=== PATIENT | female | born 1995 | race Caucasian/White ===

== ENCOUNTER 2018-07-16 23:05 | Inpatient (IN) | payer MEDICAID ==
[~2018-07-16] VITALS: Ht 162.6 cm; Wt 72.1 kg
[2018-07-17] VITALS (10 sets, daily range): BP systolic 104–118; BP diastolic 55–68; PULSE 56–104; RESP 18; Ht 162.6 cm; Wt 72.1 kg
[2018-07-17] MEDS ORDERED: BUTORPHANOL 2 MG INJ IV PRN (01:00)
[2018-07-17] MEDS ORDERED: LIDOCAINE 1% (MPF) 30 ML INJ INJ PRN (01:00)
[2018-07-17] MEDS ORDERED: METHYLERGONOVINE 0.2 MG INJ IM PRN (01:00)
[2018-07-17] MEDS ORDERED: OXYTOCIN 30 UNITS/LR 500 ML IV SCH ×3 (01:00→11:30)
[2018-07-17] MEDS ORDERED: CARBOPROST 250 MCG INJ IM PRN ×2 (01:00→14:30)
[2018-07-17] MEDS ORDERED: OXYTOCIN 30 UNITS/LR 500 ML IV PRN ×2 (01:00→14:30)
[2018-07-17] MEDS: LACTATED RINGER'S 1,000 ML IV SCH ×3 (04:00→16:35)
--- NOTE | 2018-07-17 09:17 | TRIAGE ---
OB Triage Datetime Report Generated by CPN: 07/17/2018 09:17 Datetime: 07/17/2018 08:16 Vaginal Exam Dilatation (cms): 3.0 Effacement (%): 50 Station: -3 Exam By: lh Datetime: 07/17/2018 08:03 Assessment Type: Ongoing Assessment Maternal Assessment Level of Consciousness: Fully Conscious DTR's/Clonus: DTRs 2+; No Clonus Headache: Denies Blurred Vision: No Respiratory Effort: Unlabored; Regular Rhythm; Equal Expansion Breath Sounds, Left: Clear and Equal Breath Sounds, Right: Clear and Equal Nausea/Vomiting: Denies RUQ Epigastric Pain: Denies Lower Extremities Edema: None Upper Extremities Edema: None Facial Edema: None Fall Risk Assessment History of Falling: (0) No Secondary Diagnosis: (0) No Ambulatory Aid: (0) Bedrest/Nurse Assist Gait: (0) Normal/Bedrest/Immobile Mental Status: (0) Oriented to Own Ability Datetime: 07/17/2018 07:59 Maternal Assessment Level of Consciousness: Fully Conscious Headache: Denies Blurred Vision: No Nausea/Vomiting: Denies RUQ Epigastric Pain: Denies Facial Edema: None Labor Evaluation Frequency: 2-8 Monitor Mode: External Duration (sec)2399: 30-80 Quality: Mild Pattern: Normal: <= 5 Contractions in 10 Minutes Resting Tone [place]: Relaxed Heart Rate FHR Baseline Rate: 130 Monitor Mode: External US FHR Baseline Changes: No Baseline Change Variability: Moderate 6-25 bpm Accelerations: 15X15 Decelerations: None Category: Category I Pain Assessment Pain Scale: 3 Pain Presence: None/Denies Pain Type: Cramping Pain Location: Abdomen; Back Pain Goal: 5 Pain Relief Measures: Comfort Measures Membrane Status: Intact Datetime: 07/17/2018 07:43 Stage of : Labor Temperature Route: Oral Pain Assessment Pain Scale: 3 Pain Presence: Intermittent Pain Type: Burning; Cramping Pain Goal: 5 Datetime: 07/17/2018 05:39 Stage of : Labor Maternal Assessment Level of Consciousness: Fully Conscious Respiratory Effort: Unlabored Breath Sounds, Left: Clear and Equal Breath Sounds, Right: Clear and Equal Labor Evaluation Frequency: 4 Monitor Mode: External Duration (sec)2399: 50-55 Quality: Mild Pattern: Normal: <= 5 Contractions in 10 Minutes Resting Tone [place]: Relaxed Heart Rate FHR Baseline Rate: 125 Monitor Mode: External US FHR Baseline Changes: No Baseline Change Variability: Moderate 6-25 bpm Accelerations: 15X15 Decelerations: None Category: Category I Pain Assessment Pain Scale: 4 Pain Presence: Intermittent Pain Type: Dull; Ache Pain Location: Abdomen; Back Pain Relief Measures: Comfort Measures Membrane Status: Intact Datetime: 07/17/2018 04:40 Stage of : Labor Labor Evaluation Frequency: 3-5 Monitor Mode: External Duration (sec)2399: 40-50 Quality: Mild Pattern: Normal: <= 5 Contractions in 10 Minutes Resting Tone [place]: Relaxed Heart Rate FHR Baseline Rate: 125 Monitor Mode: External US FHR Baseline Changes: No Baseline Change Variability: Moderate 6-25 bpm Accelerations: 15X15 Decelerations: None Category: Category I Pain Assessment Pain Scale: 3 Pain Presence: Intermittent Pain Type: Dull; Ache Datetime: 07/17/2018 03:59 Stage of : Labor Maternal Assessment Level of Consciousness: Fully Conscious DTR's/Clonus: DTRs 2+ Headache: Denies Blurred Vision: No Respiratory Effort: Unlabored Breath Sounds, Left: Clear and Equal Breath Sounds, Right: Clear and Equal Nausea/Vomiting: Denies RUQ Epigastric Pain: Denies Labor Evaluation Frequency: 3-5 Monitor Mode: External Duration (sec)2399: 60-65 Quality: Mild Pattern: Normal: <= 5 Contractions in 10 Minutes Resting Tone [place]: Relaxed Heart Rate FHR Baseline Rate: 120 Monitor Mode: External US FHR Baseline Changes: No Baseline Change Variability: Moderate 6-25 bpm Accelerations: 15X15 Decelerations: None Category: Category I Pain Assessment Pain Scale: 4 Pain Presence: Intermittent Pain Type: Cramping; Dull; Contraction Pain Location: Abdomen; Back Pain Goal: 2 Pain Relief Measures: Comfort Measures Pain Assessment Comments: AT BEDSIDE Membrane Status: Intact Datetime: 07/17/2018 03:28 Stage of : Labor Maternal Assessment Level of Consciousness: Fully Conscious DTR's/Clonus: DTRs 2+ Headache: Denies Blurred Vision: No Respiratory Effort: Unlabored Breath Sounds, Left: Clear and Equal Breath Sounds, Right: Clear and Equal Nausea/Vomiting: Denies RUQ Epigastric Pain: Denies Labor Evaluation Frequency: 4 Monitor Mode: External Duration (sec)2399: 40-50 Quality: Mild Pattern: Normal: <= 5 Contractions in 10 Minutes Resting Tone [place]: Relaxed Interventions: Side to Side Heart Rate FHR Baseline Rate: 120 Monitor Mode: External US FHR Baseline Changes: No Baseline Change Variability: Moderate 6-25 bpm Accelerations: 10X10 Decelerations: None Category: Category I Pain Assessment Pain Scale: 4 Pain Presence: Intermittent Pain Type: Cramping; Dull; Contraction; Ache Pain Location: Abdomen Pain Goal: 2 Pain Relief Measures: Comfort Measures Membrane Status: Intact Datetime: 07/17/2018 01:05 Stage of : OB Triage Labor Evaluation Frequency: 3-6 Monitor Mode: External Duration (sec)2399: 70-140 Quality: Mild Pattern: Normal: <= 5 Contractions in 10 Minutes Resting Tone [place]: Relaxed Heart Rate FHR Baseline Rate: 120 Monitor Mode: External US Variability: Moderate 6-25 bpm Accelerations: 15X15 Decelerations: None Category: Category I Pain Assessment Pain Scale: 3 Pain Presence: Intermittent Pain Type: Cramping Pain Location: Abdomen Pain Goal: 3 Pain Relief Measures: Comfort Measures Datetime: 07/17/2018 00:30 Stage of : OB Triage Temperature Route: Oral Labor Evaluation Frequency: 1-4 Monitor Mode: External Duration (sec)2399: 50-150 Quality: Mild Pattern: Normal: <= 5 Contractions in 10 Minutes Resting Tone [place]: Relaxed Heart Rate FHR Baseline Rate: 120 Monitor Mode: External US Variability: Moderate 6-25 bpm Accelerations: 15X15 Decelerations: None Category: Category I Pain Assessment Pain Scale: 3 Pain Presence: Intermittent Pain Type: Cramping Pain Location: Abdomen Pain Goal: 3 Pain Relief Measures: Comfort Measures Datetime: 07/16/2018 23:58 Assessment Type: Triage Maternal Assessment Level of Consciousness: Fully Conscious DTR's/Clonus: DTRs 2+; No Clonus Headache: Denies Blurred Vision: No Respiratory Effort: Unlabored; Regular Rhythm; Equal Expansion Breath Sounds, Left: Clear and Equal Breath Sounds, Right: Clear and Equal Nausea/Vomiting: Denies RUQ Epigastric Pain: Denies Lower Extremities Edema: None Upper Extremities Edema: None Facial Edema: None Fall Risk Assessment History of Falling: (0) No Secondary Diagnosis: (0) No Ambulatory Aid: (0) Bedrest/Nurse Assist IV Therapy: (0) No Gait: (0) Normal/Bedrest/Immobile Mental Status: (0) Oriented to Own Ability Fall Score: 0 Fall Risk Score Definition: No Risk: No action required Datetime: 07/16/2018 23:57 Time of Arrival: 07/16/2018 23:00 EGA: 39.4 Arrived By: Wheelchair Arrived From: Home Chief Complaint: CONTRACTIONS FOR 3 DAYS, NOW Q 5 MIN Movement: Present Contractions: Regular Contractions: Q 5 Rupture of Membranes: Denies Vaginal Discharge: Denies Time Provider Notified: 07/17/2018 00:29 Provider Notified: OSMIN Initial Plan: EFM, ASSESSMENT, CALL MD FOR ORDERS Vaginal Exam Dilatation (cms): 3.0 Effacement (%): 60 Station: -2 Exam By: MIKE Vaginal Bleeding: None Cervix, Consistency: Moderate Cervix, Position: Posterior
--- NOTE | 2018-07-17 11:04 | HP ---
Date/Time of Note Date/Time of Note DATE: 07/17/18 TIME: 11:01 OB - History Hx of Present Free Text/Dictation 23 YO with IUP at 39.5 weeks with EDC 07/19/2018 who reported to L&D with contractions. AROM done and she has clear fluid. adequate pelvic, EFW 7.5 LB Care: Good Care Ultrasounds: Normal mid trimester US Obstetrical Complications: None Medical Complications: None Past Family/Social History * Past Medical, Surgical, Family and Obstetric Histories reviewed from chart. OB Admission Exam Vital Signs Vital Signs Vital Signs Date Temp Pulse Resp B/P (MAP) Pulse Ox O2 O2 Flow FiO2 Time Delivery Rate 07/17/18 98.4 71 18 118/65 Room Air 00:34 (82) Physical Exam HEENT: WNL Heart: Rhythm Normal Lungs: Clear, Equal Abdomen: WNL Extremities: Normal Reflexes: Normal Cervical Dilatation: 3cm Last 72 hours Lab Results CBC & BMP 07/17/18 03:17 OB Assessment/Plan Reason for admission: other (Early Labor) Induction Method: per Pitocin Protocol PEG CAMERON MD Jul 17, 2018 11:04
[2018-07-17] MEDS: MISOPROSTOL 200 MCG TAB PR PRN ×2 (13:46→13:49)
[2018-07-17] MEDS: LACTATED RINGER'S 1,000 ML IV* SCH ×2 (14:22→23:51)
--- NOTE | 2018-07-17 14:27 | LDN ---
Date/Time of Note Date/Time of Note DATE: 07/17/18 TIME: 14:24 Delivery Summary s/p of viabl male infant. she had deep laceration in very close proximity of the urethra. I placed álvarez cath and then used 2-0 Chromic on SH and repaired the laceration. she also had 2nd perineal laceration which was repaired with 3-0 Vicryl. she had PPH with EBL 600 ml. Pitocin, Methergine and Cytotec given. PPH resolved. placenta delivered intact and spontaneously Placenta Delivered: Spontaneously Meconium: none Episiotomy: No Perineal laceration: 2 Anesthesia type: Local Estimated blood loss: 600 Sponge & Needle done & correct: Yes All needle counts correct: Yes Any foreign bodies felt in the: No Delivery Information Sex Sex: male Apgars 1 Minute: 8 5 Minute: 9 Suctioning Nose & mouth suctioned at vladislav: No Delee suction performed: No Umbilical Cord Umbilical cord with: 3 Vessels Cord presentations: no nuchal cord Cord Blood was obtained: Yes Mother & Baby Disposition Disposition Mom & Baby to Maternity; Good: Yes PEG CAMERON MD Jul 17, 2018 14:27
[2018-07-17] MEDS ORDERED: SENNA/DOCUSATE NA (8.6MG/50MG) TAB PO PRN (14:30)
[2018-07-17] MEDS ORDERED: DIPHENHYDRAMINE 25 MG CAP PO PRN (14:30)
[2018-07-17] MEDS ORDERED: WITCH HAZEL/GLYCERIN PAD PR PRN (14:30)
[2018-07-17] MEDS ORDERED: HYDROCODONE/APAP (5/325) TAB PO PRN ×2 (14:30)
[2018-07-17] MEDS ORDERED: ONDANSETRON 4 MG TAB PO PRN (14:30)
[2018-07-17] MEDS ORDERED: DIPHENHYDRAMINE 50 MG INJ IV PRN (14:30)
[2018-07-17] MEDS ORDERED: NA PHOSPHATE/BIPHOS 133 ML ENEMA PR PRN (14:30)
[2018-07-17] MEDS ORDERED: LANOLIN HPA 1 PKT TOP PRN (14:30)
[2018-07-17] MEDS ORDERED: DIBUCAINE 1% 30 GM OINT TOP PRN (14:30)
[2018-07-17] MEDS ORDERED: MISOPROSTOL 200 MCG TAB PR PRN (14:30)
[2018-07-17] MEDS ORDERED: ONDANSETRON 4 MG INJ IV PRN (14:30)
[2018-07-17] MEDS ORDERED: BENZOCAINE 20% 56 ML SPRAY TOP PRN (14:30)
[2018-07-17] MEDS ORDERED: MAGNESIUM HYDROXIDE 30ML CUP PO PRN (14:30)
[2018-07-17] MEDS ORDERED: CEFAZOLIN 2 GM/50 ML (PMX) 50 ML IVPB ONE (15:30)
[2018-07-17] MEDS: IBUPROFEN 600 MG TAB PO SCH ×2 (18:19→23:51)
[2018-07-17] MEDS: PIPER-TAZO 3.375 GM IV (PMX) 100 ML IVPB SCH (20:25)
[2018-07-17] MEDS: SENNA/DOCUSATE NA (8.6MG/50MG) TAB PO SCH (20:26)
[2018-07-18] VITALS: BP 106/56; PULSE 71
[2018-07-18] MEDS: LACTATED RINGER'S 1,000 ML IV SCH ×3 (01:19→16:35)
[2018-07-18] MEDS: PIPER-TAZO 3.375 GM IV (PMX) 100 ML IVPB SCH ×4 (02:18→20:19)
[2018-07-18 04:03] VITALS: BP 100/60; PULSE 70; RESP 18
[2018-07-18] MEDS: LACTATED RINGER'S 1,000 ML IV* SCH ×3 (06:22→22:22)
[2018-07-18] MEDS: IBUPROFEN 600 MG TAB PO SCH ×3 (06:23→17:54)
[2018-07-18 09:30] VITALS: BP 102/60; PULSE 86; RESP 18
--- NOTE | 2018-07-18 09:49 | DS ---
Date/Time of Note Date/Time of Note DATE: 07/18/18 TIME: 09:49 Obstetrical Discharge Record Final Diagnosis Final Diagnosis: Term delivered Vaginal Delivery Obstetrical Delivery: Spontaneous Complications Augmentation: Yes Induction: No Rupture of Membranes: No Condition on Discharge Physical Assessment Voiding: Yes Bowel Movement: Yes Breast: Soft, non-tender, Filling Fundus: Firm Abdomen and Incision: soft, not tender Calf Tenderness: No Patient Condition: Good PEG CAMERON MD Jul 18, 2018 09:49
[2018-07-18] MEDS: SENNA/DOCUSATE NA (8.6MG/50MG) TAB PO SCH ×2 (12:11→20:19)
[2018-07-18 16:00] VITALS: BP 116/63; PULSE 80; RESP 18
[2018-07-18 20:00] VITALS: BP 111/57; PULSE 88; RESP 18
[2018-07-19] MEDS: IBUPROFEN 600 MG TAB PO SCH ×3 (00:27→11:14)
[2018-07-19] MEDS: LACTATED RINGER'S 1,000 ML IV SCH (00:35)
[2018-07-19] MEDS: PIPER-TAZO 3.375 GM IV (PMX) 100 ML IVPB SCH ×2 (02:34→08:25)
[2018-07-19 04:04] VITALS: BP 105/60; PULSE 82
[2018-07-19] MEDS: LACTATED RINGER'S 1,000 ML IV* SCH (06:22)
[2018-07-19 08:15] VITALS: BP 103/59; PULSE 81; RESP 20
[2018-07-19] MEDS ORDERED: DIPHTH/TET/ACEL PERTUSS (ADULT) 0.5 ML VIAL IM* ONE (09:00)
[2018-07-19] MEDS ORDERED: MEASLES,MUMPS,RUBELLA VACCINE INJ SC* ONE (09:00)
[2018-07-19] MEDS ORDERED: VARICELLA VACCINE LIVE/PF 1,350 UNIT/0.5 ML ML SC* ONE (09:00)
[2018-07-19] MEDS: SENNA/DOCUSATE NA (8.6MG/50MG) TAB PO SCH (10:03)
--- NOTE | 2018-07-22 11:27 | DELSUM ---
Delivery Summary A-C Datetime Report Generated by CPN: 07/22/2018 11:20 DELIVERY PERSONNEL Imagery Analyst: Me Chavezena MATERNAL INFORMATION Delivery Anesthesia: None Medications in Delivery: PITOCIN 30 UNITS IN 500 ML L/R INJ IV BOLUS RATE Delivery QBL (ml): 600 Placenta Cultured: No Maternal Complications: None LABOR SUMMARY EDC: 07/19/2018 00:00 No. Babies in Womb: 1 Attempted: No Labor Anesthesia: None LABOR INFORMATION Reason for Induction: Not Applicable Onset of Labor: 07/16/2018 16:00 Complete Dilatation: 07/17/2018 13:28 Oxytocin: Augmentation Group B Beta Strep: Negative Antibiotics # of Doses: 0 Steroids Given: None Reason Steroids Not Administered: Not Applicable MEMBRANES Membranes Rupture Method: Artificial Rupture of Membranes: 07/10/2018 10:50 Length of Rupture (hr): 170.78 Amniotic Fluid Color: Clear Amniotic Fluid Amount: Moderate Amniotic Fluid Odor: None STAGES OF LABOR Stage 1 hr: 21 Stage 1 min: 28 Stage 2 hr: 0 Stage 2 min: 9 Stage 3 hr: 0 Stage 3 min: 3 Total Time in Labor hr: 21 Total Time in Labor min: 40 VAGINAL DELIVERY Episiotomy: None Laceration Extension: Second Degree Laceration Type: Perineal Other Laceration: Super uretral laceration Laceration Repair: Yes Initial Vag Sponge Count: 10+20 Final Vag Sponge Count: 30 Initial Vag Sharps Count: 1+2 Final Vag Sharps Count: 3 Sponge Count Correct: Yes Sharps Count Correct: Yes BABY A INFORMATION Delivery Date/Time: 07/17/2018 13:37 Method of Delivery: Vaginal Born in Route : No : N/A Forceps: N/A Vacuum Extraction: N/A Shoulder Dystocia : N/A SHOULDER DYSTOCIA BABY A Delivery Date/Time: 07/17/2018 13:37 PRESENTATION/POSITION BABY A Presentation: Cephalic Cephalic Presentation: Vertex Vertex Position: Left Occipital Posterior Breech Presentation: N/A PLACENTA INFORMATION BABY A Placenta Delivery Time : 07/17/2018 13:40 Placenta Method of Delivery: Spontaneous Placenta Status: Delivered SCORES BABY A Heart Rate 1 min: >100 bpm Resp Effort 1 min: Good Cry Reflex Irritability 1 min: Cough/Sneeze/Pulls Away Muscle Tone 1 min: Active Motion Color 1 min: Blue/Pale Resuscitation Effort 1 min: Tactile Stimulation SCORE 1 MIN: 8 Heart Rate 5 min: >100 bpm Resp Effort 5 min: Good Cry Reflex Irritability 5 min: Cough/Sneeze/Pulls Away Muscle Tone 5 min: Some Flexion of Extrem Color 5 min: Body [place], Extremit Blue Resuscitation Effort 5 min: Tactile Stimulation SCORE 5 MIN: 8 INFORMATION BABY A Gestational Age at Delivery: 39.5 Gestational Status: Full Term- 39- 40.6 Weeks Outcome : Liveborn Condition : Stable Sex: Male IDENTIFICATION/MEDS BABY A ID Band Number: [id number] ID Band Location: Right Leg; Left Arm Sensor Applied: Yes Sensor Number: [id number] Sensor Location : Cord Clamp Vitamin K Given : Not Given Erythromycin Given: Not Given WEIGHT/LENGTH BABY A Infant Birthweight (gm): 4020 Weight (lb): 8 Weight (oz): 14 Infant Length (in): 20.50 Length (cm): 52.07 CORD INFORMATION BABY A No. Cord Vessels: 3 Nuchal Cord : N/A Cord Blood Taken: Yes Suction: Mouth; Nose ASSESSMENT BABY A Complications: None Physical Findings at Delivery: Within Normal Limits Respirations: Appears Normal Farm Management Adviser/ALS Called : No Care By: Lashell SUAREZ/Chavez HARVEY Transferred To: Remains with Mother
== END 2018-07-19 14:50 | disposition home or self-care (01) | DRG 806 ==
LOC: OBT 23:05 → L-D 23:07 → OBT 07-17 00:30 → L-D 07-17 01:34 → PP1 07-17 16:38
PROVIDERS: ADMIT Specialist; ATTEND Specialist
PROC: 10E0XZZ Delivery of Products of Conception, External Approach (ICD-10-PCS; principal; 2018-07-17)
PROC: 0KQM0ZZ Repair Perineum Muscle, Open Approach (ICD-10-PCS; 2018-07-17)
PROC: 4A1HXCZ Monitoring of Products of Conception, Cardiac Rate, External Approach (ICD-10-PCS; 2018-07-17)
DX: O70.1 Second degree perineal laceration during delivery (principal); O72.1 Other immediate postpartum hemorrhage; Z37.0 Single live birth; Z3A.39 39 weeks gestation of pregnancy
CPT/HCPCS: 76815; 82947; 85025; 85610; 85730; 86592; 86850; 86900; 86901; 87340; 90716; 99464; G0463; J0690; J2210; J2543; J2590; J7120